=== PATIENT | male | born 1940 | race Caucasian/White ===

== ENCOUNTER → 2018-04-25 16:59 | Outpatient (CLI) | payer MEDICARE, OTHER, SELFPAY ==
[2018-04-25 18:00] LABS: Add Manual Diff / Slide Review NO; Basophils Percent Auto 0.4 % (0-2); Eosinophils Percent Auto 1.3 % (2-4); Hematocrit 32.2 % (41-53); Hemoglobin 11.2 g/dL (13.5-17.5); Lymphocytes Percent Auto 26.4 % (25-40); Mean Corpuscular HGB Conc 34.6 % (30-36); Mean Corpuscular Volume 98.4 fL (80-100); Monocytes Percent Auto 6.4 % (3-14); Neutrophils Absolute Auto 3600 /uL (3000-5900); Neutrophils Percent Auto 65.5 % (50-75); Platelet Count 171 X10^3/uL (150-400); Red Blood Cell Count 3.28 X10^6/uL (4.5-5.9); Red Cell Distribution Width 13.8 % (11.6-14.8); White Blood Cell Count 5.5 X10^3/uL (4.5-11.0)
[2018-04-25 19:05] LABS: Alanine Aminotransferase 33 IU/L (21-72); Albumin 4.4 g/dL (3.5-5.0); Albumin Globulin Ratio 1.4 (1.0-2.8); Alkaline Phosphatase 83 U/L (38-126); Aspartate Aminotransferase 26 IU/L (17-59); Bilirubin Total 0.5 mg/dL (0.2-1.3); Blood Urea Nitrogen 18 mg/dL (9-20); Calcium 9.8 mg/dL (8.4-10.2); Carbon Dioxide 24 mmol/L (22-32); Chloride 106 mmol/L (98-107); Estimated Glomerular Filt Rate 58.6 mL/min (>60); Globulin 3.1 g/dL (1.7-4.1); Glucose 123 mg/dL (80-110); HEMOLYSIS < 15 (0-50); Potassium 4.8 mmol/L (3.4-5.1); Sodium 144 mmol/L (137-145); Total Protein 7.5 g/dL (6.3-8.2)
[2018-04-25 19:07] LABS: Hemoglobin A1C% w Est Avg Glu 6.1 % (4.0-6.0)
[2018-04-27 15:15] LABS: Parathyroid Hormone Int 54 pg/mL (14-64)
== END ==
PROVIDERS: PCP Internal Medicine; Visit Provider Internal Medicine
DX: E08.42 Diabetes mellitus due to underlying condition with diabetic polyneuropathy (principal)
CPT/HCPCS: 36415; 80053; 83036; 83970; 85025

== ENCOUNTER → 2019-05-02 15:09 | Outpatient (CLI) | payer MEDICARE, OTHER, SELFPAY ==
--- NOTE | 2019-05-02 | DI.RAD.S_ITS ---
PROCEDURE: XR ANKLE RT MIN 3V INDICATIONS: right foot injury TECHNIQUE: 3 views of the ankle were acquired. COMPARISON: None. FINDINGS: Bones: No fractures or dislocations. Ankle mortise is normally aligned. No suspicious bony lesions. Mild degenerative joint disease is present at the tibiotalar joint. There are calcaneal spurring. Soft tissues: No tibiotalar joint effusion. Achilles tendon appears normal. IMPRESSION: 1. No acute bony injuries. If clinical symptoms persist or clinical suspicion for pathology is high, a repeat examination in 7-10 days, or advanced imaging such as CT or MRI is suggested for further evaluation. Dictated by: Noble Yu M.D. on 05/02/2019 at 17:08 Approved by: Noble Yu M.D. on 05/02/2019 at 17:41
== END ==
PROVIDERS: PCP Internal Medicine; Visit Provider Internal Medicine
DX: S99.921A Unspecified injury of right foot, initial encounter (principal); M19.071 Primary osteoarthritis, right ankle and foot; M77.31 Calcaneal spur, right foot; X58.XXXA Exposure to other specified factors, initial encounter
CPT/HCPCS: 73610

== ENCOUNTER → 2020-04-24 13:50 | Outpatient (CLI) | payer MEDICARE, OTHER, SELFPAY ==
[2020-04-24 14:53] LABS: Add Manual Diff / Slide Review NO; Basophils Absolute Auto 0 /uL (0-100); Basophils Percent Auto 0.2 % (0-2); Eosinophils Absolute Auto 0 /uL (0-450); Eosinophils Percent Auto 0.7 % (2-4); Hematocrit 29.9 % (41-53); Hemoglobin 10.2 g/dL (13.5-17.5); Lymphocytes Absolute Auto 1200 /uL (1100-4500); Lymphocytes Percent Auto 25.1 % (25-40); Mean Corpuscular HGB Conc 34.1 % (30-36); Mean Corpuscular Hemoglobin 33.2 PG (26-34); Mean Corpuscular Volume 97.3 fL (80-100); Monocytes Absolute Auto 300 /uL (0-900); Neutrophils Absolute Auto 3400 /uL (1500-7000); Platelet Count 162 X10^3/uL (150-400); Red Blood Cell Count 3.08 X10^6/uL (4.5-5.9); Red Cell Distribution Width 14.5 % (11.6-14.8)
[2020-04-24 15:00] LABS: Hemoglobin A1C% w Est Avg Glu 6.3 % (4.0-6.0)
[2020-04-24 15:23] LABS: Alanine Aminotransferase 16 IU/L (<50); Albumin 4.5 g/dL (3.5-5.0); Albumin Globulin Ratio 1.5 (1.0-2.8); Alkaline Phosphatase 55 U/L (38-126); Aspartate Aminotransferase 25 IU/L (17-59); BUN Creatinine Ratio 15.6 (6-22); Bilirubin Total 0.5 mg/dL (0.2-1.3); Blood Urea Nitrogen 24 mg/dL (9-20); Carbon Dioxide 27 mmol/L (22-32); Chloride 105 mmol/L (98-107); Estimated Glomerular Filt Rate 43.7 mL/min (>60); Globulin 3.1 g/dL (1.7-4.1); Glucose 182 mg/dL (80-110); HEMOLYSIS < 15 (0-50); Potassium 4.8 mmol/L (3.4-5.1); Sodium 140 mmol/L (137-145); Total Protein 7.6 g/dL (6.3-8.2)
[2020-04-25 07:10] LABS: Parathyroid Hormone Int 16 pg/mL (15-65)
== END ==
PROVIDERS: PCP Internal Medicine; Referring Provider Internal Medicine; Visit Provider Internal Medicine
DX: E11.9 Type 2 diabetes mellitus without complications (principal); D63.1 Anemia in chronic kidney disease; E83.52 Hypercalcemia
CPT/HCPCS: 36415; 80053; 83036; 83970; 85025

== ENCOUNTER → 2020-05-01 15:10 | Outpatient (CLI) | payer MEDICARE, OTHER, SELFPAY ==
[2020-05-01 18:10] LABS: HEMOLYSIS < 15 (0-50); Iron 97 ug/dL (49-181)
[2020-05-01 18:20] LABS: Percent Iron Saturation 27 % (20-50); Total Iron Binding Capacity 362 ug/dL (261-462); Transferrin 283 mg/dL (206-381)
== END ==
PROVIDERS: PCP Internal Medicine; Referring Provider Internal Medicine; Visit Provider Internal Medicine
DX: N28.9 Disorder of kidney and ureter, unspecified (principal); D63.1 Anemia in chronic kidney disease
CPT/HCPCS: 36415; 83540; 83550

== ENCOUNTER → 2020-09-16 14:00 | Oncology outpatient (ONC) | payer MEDICARE, OTHER, SELFPAY ==
--- NOTE | 2020-05-12 12:55 | ONC.MSW ---
Description: Initial Referral Navigation Reason for Referral: Progressive Chronic Anemia-Normal Iron Studies Activity: Reviewed referral for acuity, medical status and immediate needs. Referred by Dr. Rosario, who feels that this anemia is due to chronic kidney disease or bone marrow failure. Forwarded to scheduling for next available initial consult time.
[2020-05-13 12:16] LABS: Add Manual Diff / Slide Review NO; Basophils Absolute Auto 0 /uL (0-100); Basophils Percent Auto 0.2 % (0-2); Eosinophils Absolute Auto 0 /uL (0-450); Eosinophils Percent Auto 0.9 % (2-4); Hemoglobin 9.5 g/dL (13.5-17.5); Lymphocytes Absolute Auto 1300 /uL (1100-4500); Lymphocytes Percent Auto 23.7 % (25-40); Mean Corpuscular HGB Conc 34.1 % (30-36); Mean Corpuscular Hemoglobin 33.6 PG (26-34); Mean Corpuscular Volume 98.4 fL (80-100); Monocytes Absolute Auto 400 /uL (0-900); Monocytes Percent Auto 6.6 % (3-14); Neutrophils Absolute Auto 3700 /uL (1500-7000); Neutrophils Percent Auto 68.6 % (50-75); Platelet Count 161 X10^3/uL (150-400); Red Blood Cell Count 2.84 X10^6/uL (4.5-5.9); Red Cell Distribution Width 14.5 % (11.6-14.8); White Blood Cell Count 5.4 X10^3/uL (4.5-11.0)
--- NOTE | 2020-05-13 12:31 | P.CONONC_ITS ---
History of Present Illness - Data of Consult Primary Care Provider: Hung Rosario MD - Consult Narrative Narrative: Harrison Carlin is a 79 year old male referred for further evaluation of normochromic normocytic anemia. Review of his old records shows that in November of 2012 he had a hemoglobin of 11.6. 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 In August of 2017 he had a hemoglobin of 10.6 hematocrit 30.4 white count 6100 with platelets of a [id number]. At that time his creatinine was 1.2. He has also had episodic hypercalcemia 1st noted in July of 2016 when his calcium was 10.6. He has been followed by Dr. Louis Rosario, and his hemoglobin has gone down lately. He is now referred for hematology consultation. He has had progressive dementia. He has had increasing fatigue for the last 2 years or so. He has lost about 10 lb over the last several years. He has felt cold frequently during this time period he has chronic pain in his lower back this been present for several years but has been seen by an orthopedist and recommended to have physical therapy for his back which he completed several years ago. The pain does not wake him up at night and has not changed much over the last 2 years. He has nocturia but no dysuria. He denies any other pain, bleeding, localized weakness, fever, chills, nausea, vomiting, cough, shortness of breath, lumps or bumps, skin rash. All other systems are negative. Past medical history 1. He had a stroke in 2015 2. Adult onset diabetes 3. High blood pressure 4. Hyperlipidemia 5. coronary artery disease. He had an NH in 1993 and angioplasty in 2014 6. History of spermatocele 7. Benign prostatic hypertrophy 8. Chronic renal insufficiency 9. Previous surgeries include an upper endoscopy, colonoscopy, chest tube for pneumothorax 10. There is no family history of blood disorders 11. He is accompanied by his is very supportive. He is a former smoker quit in 1977 is an occasional drinker. 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 He denies rheumatic fever, tuberculosis, or any kind of cancer. Geriatric assessment: He requires assistance with his ADLs including dressing, and sometimes toileting. He is not independent in any of his IADLs. Get up and go time was significantly prolonged. He has a frail geriatric status. CC: Cuco Lock MD Home Medications and Allergies Home Medications Medication Instructions Recorded Confirmed Type atorvastatin 40 mg PO HS #0 09/08/17 History clopidogrel 75 mg PO QPM #0 09/08/17 History donepezil 5 mg PO HS #0 09/08/17 History acetaminophen 650 mg PO Q8H #90 tab 09/09/17 Rx gabapentin [Neurontin] 300 mg PO HS #30 cap 09/09/17 Rx aspirin 81 mg PO DAILY 05/13/20 05/13/20 History ferrous sulfate 325 mg PO BID 05/13/20 05/13/20 History lancets-blood glucose strips 05/13/20 05/13/20 History metformin 1,000 mg PO BID 05/13/20 05/13/20 History metoprolol tartrate 25 mg PO DAILY 05/13/20 05/13/20 History multivitamin 1 tab PO DAILY 05/13/20 05/13/20 History pioglitazone 30 mg PO DAILY 05/13/20 05/13/20 History Allergies Allergy/AdvReac Type Severity Reaction Status Date / Time niacin AdvReac Unknown ITCHING Verified 05/13/20 10:34 Exam Vital signs: Intake and Output 05/12/20 05/13/20 05/13/20 23:59 07:59 15:59 Other: Weight 77.9 kg Patient Weight 05/13/20 23:59 Weight 77.9 kg Narrative: He was awake, alert and oriented x3. There was no lymphadenopathy in the cervical, supraclavicular axillary regions. Lungs were clear without wheezes or rales. Heart showed a regular rate and rhythm without murmur, gallop or rub. The abdomen is soft and nontender without any palpable hepatosplenomegaly or masses. Results - Labs Laboratory Last Values WBC 5.4 X10^3/uL (4.5-11.0) 05/13/20 11:43 RBC 2.84 X10^6/uL (4.5-5.9) L 05/13/20 11:43 Hgb 9.5 g/dL (13.5-17.5) L 05/13/20 11:43 Hct 28.0 % (41-53) L 05/13/20 11:43 MCV 98.4 fL (80-100) 05/13/20 11:43 MCH 33.6 PG (26-34) 05/13/20 11:43 MCHC 34.1 % (30-36) 05/13/20 11:43 RDW 14.5 % (11.6-14.8) 05/13/20 11:43 Plt Count 161 X10^3/uL (150-400) 05/13/20 11:43 Neut % (Auto) 68.6 % (50-75) 05/13/20 11:43 Lymph % (Auto) 23.7 % (25-40) L 05/13/20 11:43 [place] % (Auto) 6.6 % (3-14) 05/13/20 11:43 Eos % (Auto) 0.9 % (2-4) L 05/13/20 11:43 Baso % (Auto) 0.2 % (0-2) 05/13/20 11:43 Neut # (Auto) 3700 /uL (2445-0946) 05/13/20 11:43 Lymph # (Auto) 1300 /uL (0105-0751) 05/13/20 11:43 [place] # (Auto) 400 /uL (0-900) 05/13/20 11:43 Eos # (Auto) 0 /uL (0-450) 05/13/20 11:43 Baso # (Auto) 0 /uL (0-100) 05/13/20 11:43 - Imaging Additional studies: Procedures Administration of sjowkzaegn-gdevqjd-uxvacvlik, combined (05/18/13) Colonoscopy (11/04/11) Esophagogastroduodenoscopy [EGD] with closed biopsy (11/04/11) Injection or infusion of other therapeutic or prophylactic substance (08/27/14) Assessment and Plan (1) Anemia Status: Acute Mr. Kurtz has a longstanding but more recently progressive anemia. He has also had some worsening renal function, a 4 year history of intermittent mild hypercalcemia, and a remote history of a monoclonal paraprotein. He has a frail geriatric status with worsening mobility although he has not had any falls. We discussed potential causes of a normochromic normocytic anemia. He will have labs today including a ferritin, reticulocyte count, B12, folate, hypothyroidism, and primary bone marrow disorders. Primary bone marrow marrow disorders could include lymphoproliferative disorders or myelodysplastic syndrome. He will have labs done today for nutritional and metabolic screening as noted above as well as a repeat CBC. He will return afterwards for follow-up. If his anemia continues to worsen and his screening studies are unrevealing, and the potential candidate for DAVIDE support, such is with darbepoetin. He will also be referred to physical therapy. [facility] to [facility] and Fiorella nesbitt would like to go back there. This would be intended to try to improve his balance and gait stability with the goal of avoiding falls. He and his had multiple questions that were answered in detail and I personally spent 46 minutes in today's llja-rz-paiq visit with greater than 50% of the time spent in counseling regarding the issues outlined above. (1) Anemia Qualifiers: Anemia type: unspecified type Qualified Code(s): D64.9 - Anemia, unspecified
[2020-05-13 13:02] LABS: Ferritin 74 ng/mL (18-464)
[2020-05-13 13:29] LABS: Reticulocyte Count, Percent 1.5 % (0.87-2.60)
[2020-05-13 13:33] LABS: Folate > 20.0 ng/mL (2.76-20.0); Vitamin B12 265 pg/mL (239-931)
[2020-05-15 14:27] LABS: Alpha-1-Globulin 0.2 g/dL (0.0-0.4); Alpha-2-Globulin 0.8 g/dL (0.4-1.0); Gamma Globulin 0.7 g/dL (0.4-1.8); Globulin Total 2.5 g/dL (2.2-3.9); Protein, Total 6.5 g/dL (6.0-8.5)
[2020-05-28 15:07] VITALS: BP 122/68; PULSE 57; RESP 18; TEMP 36.8; O2SAT 98
--- NOTE | 2020-05-28 15:42 | ONC.PN ---
PN -Subjective Interval history: Harrison Carlin is a 79 year old male seen today for follow up evaluation of normochromic normocytic anemia. Review of his old records shows that in November of 2012 he had a hemoglobin of 11.6. 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 In August of 2017 he had a hemoglobin of 10.6 hematocrit 30.4 white count 6100 with platelets of a [id number]. At that time his creatinine was 1.2. He has also had episodic hypercalcemia 1st noted in July of 2016 when his calcium was 10.6. He has been followed by Dr. Louis Rosario, and his hemoglobin has gone down lately. He was seen for hematology consultation about 2 weeks ago, had labs, and comes in today to review results.. He has had progressive dementia. He has had increasing fatigue for the last 2 years or so. He has lost about 10 lb over the last several years. He has felt cold frequently during this time period he has chronic pain in his lower back this been present for several years but has been seen by an orthopedist and recommended to have physical therapy for his back which he completed several years ago. The pain does not wake him up at night and has not changed much over the last 2 years. He has nocturia but no dysuria. He denies any other pain, bleeding, localized weakness, fever, chills, nausea, vomiting, cough, shortness of breath, lumps or bumps, skin rash. All other systems are negative. Past medical history 1. He had a stroke in 2015 2. Adult onset diabetes 3. High blood pressure 4. Hyperlipidemia 5. coronary artery disease. He had an DC in 1993 and angioplasty in 2014 6. History of spermatocele 7. Benign prostatic hypertrophy 8. Chronic renal insufficiency 9. Previous surgeries include an upper endoscopy, colonoscopy, chest tube for pneumothorax 10. There is no family history of blood disorders 11. He is accompanied by his is very supportive. He is a former smoker quit in 1977 is an occasional drinker. 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 He denies rheumatic fever, tuberculosis, or any kind of cancer. - Patient Self-Reported Symptoms SR Constitution: Fatigue/Malaise Home Medications and Allergies Home Medications Medication Instructions Recorded Confirmed Type atorvastatin 40 mg PO HS #0 09/08/17 05/28/20 History clopidogrel 75 mg PO QPM #0 10/19/17 07/08/20 History donepezil 5 mg PO HS #0 09/08/17 05/28/20 History acetaminophen 650 mg PO Q8H #90 tab 09/09/17 05/28/20 Rx gabapentin [Neurontin] 300 mg PO HS #30 cap 09/09/17 05/28/20 Rx aspirin 81 mg PO DAILY 05/13/20 05/28/20 History ferrous sulfate 325 mg PO BID 05/13/20 05/28/20 History lancets-blood glucose strips 05/13/20 05/13/20 History metformin 1,000 mg PO BID 05/13/20 05/28/20 History metoprolol tartrate 25 mg PO DAILY 05/13/20 05/28/20 History multivitamin 1 tab PO DAILY 05/13/20 05/28/20 History pioglitazone 30 mg PO DAILY 05/13/20 05/28/20 History Allergies Allergy/AdvReac Type Severity Reaction Status Date / Time niacin AdvReac Unknown ITCHING Verified 05/13/20 10:34 Exam Vital signs: Vital Signs Temp Pulse Resp BP Pulse Ox 05/28/20 15:07 98.2 F 57 L 18 122/68 98 Intake and Output 05/27/20 05/28/20 05/28/20 23:59 07:59 15:59 Other: Weight 78.4 kg Patient Weight 05/28/20 23:59 Weight 78.4 kg Narrative: He was awake, alert and oriented x3. He was in a wheelchair. Results - Labs Laboratory Last Values WBC 5.4 X10^3/uL (4.5-11.0) 05/13/20 11:43 RBC 2.84 X10^6/uL (4.5-5.9) L 05/13/20 11:43 Hgb 9.5 g/dL (13.5-17.5) L 05/13/20 11:43 Hct 28.0 % (41-53) L 05/13/20 11:43 MCV 98.4 fL (80-100) 05/13/20 11:43 MCH 33.6 PG (26-34) 05/13/20 11:43 MCHC 34.1 % (30-36) 05/13/20 11:43 RDW 14.5 % (11.6-14.8) 05/13/20 11:43 Plt Count 161 X10^3/uL (150-400) 05/13/20 11:43 Neut % (Auto) 68.6 % (50-75) 05/13/20 11:43 Lymph % (Auto) 23.7 % (25-40) L 05/13/20 11:43 Lane % (Auto) 6.6 % (3-14) 05/13/20 11:43 Eos % (Auto) 0.9 % (2-4) L 05/13/20 11:43 Baso % (Auto) 0.2 % (0-2) 05/13/20 11:43 Neut # (Auto) 3700 /uL (4928-9033) 05/13/20 11:43 Lymph # (Auto) 1300 /uL (4166-7935) 05/13/20 11:43 Lane # (Auto) 400 /uL (0-900) 05/13/20 11:43 Eos # (Auto) 0 /uL (0-450) 05/13/20 11:43 Baso # (Auto) 0 /uL (0-100) 05/13/20 11:43 Percent Retic 1.5 % (0.87-2.60) 05/13/20 11:43 Ferritin 74 ng/mL (18-464) 05/13/20 11:43 Total Protein 6.5 g/dL (6.0-8.5) 05/13/20 11:43 Albumin 4.0 g/dL (2.9-4.4) 05/13/20 11:43 Albumin/Globulin Ratio 1.6 (0.7-1.7) 05/13/20 11:43 Gopha-2-Qyjlgroqf 0.2 g/dL (0.0-0.4) 05/13/20 11:43 Yqbmr-8-Npzoasyrk 0.8 g/dL (0.4-1.0) 05/13/20 11:43 Beta Globulins 0.8 g/dL (0.7-1.3) 05/13/20 11:43 Gamma Globulins 0.7 g/dL (0.4-1.8) 05/13/20 11:43 Gamma Glob/Tot Protein 2.5 g/dL (2.2-3.9) 05/13/20 11:43 M-Yuri 0.3 g/dL (Not Observed) H 05/13/20 11:43 Vitamin B12 265 pg/mL (239-931) 05/13/20 11:43 Folate > 20.0 ng/mL (2.76-20.0) H 05/13/20 11:43 TSH 6.60 uIU/mL (0.47-4.68) H 05/13/20 11:43 Ref Lab Notation Comment (.) 05/13/20 11:43 - Imaging Additional studies: Procedures Administration of fxxcayxgws-tkgrvso-itwweczdd, combined (05/18/13) Colonoscopy (11/04/11) Esophagogastroduodenoscopy [EGD] with closed biopsy (11/04/11) Injection or infusion of other therapeutic or prophylactic substance (08/27/14) Assessment and Plan (1) Anemia Status: Acute Mr. Kurtz has a longstanding but more recently progressive anemia. His screening labs show normal ferritin, iron saturation, vitamin B12, folate, reticulocyte count, white count, white cell differential, platelet count. His monoclonal paraprotein is 0.3 grams/deciliter on serum protein electrophoresis, stable compared with October of 2014. His TSH is slightly elevated at 6.6 but I doubt is contributing to his anemia. He does have renal insufficiency and likely has a component of anemia of chronic disease. We discussed his options in detail. One approach would be to continue to watch him. His anemia is progressive but it is relatively slow and he is not in a hurry to do anything. A 2nd option will be to proceed with further diagnostic testing. The next step would be a bone marrow examination. We reviewed the logistics of this with an outpatient procedure in of where we and into the needle would be introduced into his posterior iliac crest. This would allow sampling of the bone marrow for further clarification of the cause of the anemia. Another option would be to empirically treat him with Aranesp. Given his normal white count and platelets it is less likely that he has an underlying lymphoproliferative disorder or obviously treatable bone marrow malignancy as the cause of the anemia. In addition, he has a frail geriatric status and would not be a candidate for more intensive treatments of any sort. For anemia of chronic renal insufficiency as well as for many potential diagnoses he might find on a bone marrow (such as myelodysplastic syndrome), Aranesp would be the treatment of choice. I explained would typically start with 200 mcg every 2 weeks. Will reassess after about 8 weeks to make sure that it is working with his red count coming up, and also to make sure that this results in a clinical improvement of his symptoms. If he did respond favorably, would then try to titrate the dose so that he receives it at the longus possible interval between injections. I explained this is not a curative treatment but more like stepping on the gas. If we stop the Aranesp would be like taking our foot off the gas and things would typically go back to where they were pre treatment. He would like to think about things right now. Accordingly, will plan to get him back in about a month with another CBC and metabolic panel. Incision could be made at that time as to how he wishes to proceed. He also has generalized weakness. He will be referred to [facility] in [place]. This referral was placed last time he was here but he has not heard anything from them so we will rehab refer him to that facility. He and his were both interested in pursuing this try to maximize his functional status. I talked to our social work team and they will help to coordinate this referral. I personally spent 26 minutes in today's lrtm-ks-drsd visit with greater than 50% of the time spent in counseling regarding the issues outlined above. (1) Anemia Qualifiers: Anemia type: unspecified type Qualified Code(s): D64.9 - Anemia, unspecified
[2020-06-23 16:45] LABS: Add Manual Diff / Slide Review NO; Basophils Absolute Auto 0 /uL (0-100); Basophils Percent Auto 0.3 % (0-2); Eosinophils Absolute Auto 0 /uL (0-450); Eosinophils Percent Auto 0.7 % (2-4); Hematocrit 29.5 % (41-53); Hemoglobin 9.9 g/dL (13.5-17.5); Lymphocytes Absolute Auto 1100 /uL (1100-4500); Lymphocytes Percent Auto 21.9 % (25-40); Mean Corpuscular HGB Conc 33.5 % (30-36); Mean Corpuscular Hemoglobin 33.1 PG (26-34); Monocytes Absolute Auto 300 /uL (0-900); Monocytes Percent Auto 5.4 % (3-14); Neutrophils Absolute Auto 3500 /uL (1500-7000); Neutrophils Percent Auto 71.7 % (50-75); Platelet Count 163 X10^3/uL (150-400); Red Blood Cell Count 2.98 X10^6/uL (4.5-5.9); Red Cell Distribution Width 14.9 % (11.6-14.8); White Blood Cell Count 4.8 X10^3/uL (4.5-11.0)
[2020-06-23 17:00] LABS: Alanine Aminotransferase 16 IU/L (<50); Albumin 4.5 g/dL (3.5-5.0); Albumin Globulin Ratio 1.7 (1.0-2.8); Alkaline Phosphatase 61 U/L (38-126); Aspartate Aminotransferase 26 IU/L (17-59); BUN Creatinine Ratio 18.4 (6-22); Bilirubin Total 0.7 mg/dL (0.2-1.3); Blood Urea Nitrogen 29 mg/dL (9-20); Calcium 10.6 mg/dL (8.4-10.2); Carbon Dioxide 24 mmol/L (22-32); Chloride 105 mmol/L (98-107); Estimated Glomerular Filt Rate 42.4 mL/min (>60); Globulin 2.7 g/dL (1.7-4.1); Glucose 241 mg/dL (80-110); HEMOLYSIS < 15 (0-50); Potassium 4.9 mmol/L (3.4-5.1); Sodium 137 mmol/L (137-145); Total Protein 7.2 g/dL (6.3-8.2)
[2020-06-25 13:41] VITALS: BP 131/60; PULSE 56; RESP 16; TEMP 36.7; O2SAT 100
--- NOTE | 2020-06-25 14:01 | ONC.PN ---
PN -Subjective Interval history: Harrison Carlin is a 79 year old male seen today for follow up evaluation of normochromic normocytic anemia. Review of his old records shows that in November of 2012 he had a hemoglobin of 11.6. 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 In August of 2017 he had a hemoglobin of 10.6 hematocrit 30.4 white count 6100 with platelets of a [id number]. At that time his creatinine was 1.2. He has also had episodic hypercalcemia 1st noted in July of 2016 when his calcium was 10.6. He has been followed by Dr. Louis Rosario, and his hemoglobin has gone down lately. He was seen for hematology consultation about 6 weeks ago, had labs, and comes in today to review results.. He still feels tired but is not changed significantly. He is not getting out of the house for much of anything. He was referred referred to physical therapy the last time he was in but has not gone due to concerns about COVID. He is wanting of home physical therapy would be an option. He does not have any new pain, bleeding, localized weakness, fever, chills, nausea, vomiting, cough or change in his breathing. All other systems are negative. Past medical history 1. He had a stroke in 2015 2. Adult onset diabetes 3. High blood pressure 4. Hyperlipidemia 5. coronary artery disease. He had an PA in 1993 and angioplasty in 2014 6. History of spermatocele 7. Benign prostatic hypertrophy 8. Chronic renal insufficiency 9. Previous surgeries include an upper endoscopy, colonoscopy, chest tube for pneumothorax 10. There is no family history of blood disorders 11. He is accompanied by his is very supportive. He is a former smoker quit in 1977 is an occasional drinker. 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 He denies rheumatic fever, tuberculosis, or any kind of cancer. - Patient Self-Reported Symptoms SR Constitution: Fatigue/Malaise Home Medications and Allergies Home Medications Medication Instructions Recorded Confirmed Type atorvastatin 40 mg PO HS #0 09/08/17 06/25/20 History clopidogrel 75 mg PO QPM #0 09/08/17 06/25/20 History donepezil 5 mg PO HS #0 09/08/17 06/25/20 History acetaminophen 650 mg PO Q8H #90 tab 09/09/17 06/25/20 Rx gabapentin [Neurontin] 300 mg PO HS #30 cap 09/09/17 06/25/20 Rx aspirin 81 mg PO DAILY 05/13/20 06/25/20 History ferrous sulfate 325 mg PO BID 05/13/20 06/25/20 History lancets-blood glucose strips 05/13/20 06/25/20 History metformin 1,000 mg PO BID 05/13/20 06/25/20 History metoprolol tartrate 25 mg PO DAILY 05/13/20 06/25/20 History multivitamin 1 tab PO DAILY 05/13/20 06/25/20 History pioglitazone 30 mg PO DAILY 05/13/20 06/25/20 History Allergies Allergy/AdvReac Type Severity Reaction Status Date / Time niacin AdvReac Unknown ITCHING Verified 05/13/20 10:34 Exam Vital signs: Vital Signs Temp Pulse Resp BP Pulse Ox 06/25/20 13:41 98.1 F 56 L 16 131/60 100 Intake and Output 06/24/20 06/25/20 06/25/20 23:59 07:59 15:59 Other: Weight 75.7 kg Patient Weight 06/25/20 23:59 Weight 75.7 kg Narrative: He was awake, alert and oriented x3. He was in a wheelchair. Results - Labs Laboratory Last Values WBC 4.8 X10^3/uL (4.5-11.0) 06/23/20 16:35 RBC 2.98 X10^6/uL (4.5-5.9) L 06/23/20 16:35 Hgb 9.9 g/dL (13.5-17.5) L 06/23/20 16:35 Hct 29.5 % (41-53) L 06/23/20 16:35 MCV 99.0 fL (80-100) 06/23/20 16:35 MCH 33.1 PG (26-34) 06/23/20 16:35 MCHC 33.5 % (30-36) 06/23/20 16:35 RDW 14.9 % (11.6-14.8) H 06/23/20 16:35 Plt Count 163 X10^3/uL (150-400) 06/23/20 16:35 Neut % (Auto) 71.7 % (50-75) 06/23/20 16:35 Lymph % (Auto) 21.9 % (25-40) L 06/23/20 16:35 [place] % (Auto) 5.4 % (3-14) 06/23/20 16:35 Eos % (Auto) 0.7 % (2-4) L 06/23/20 16:35 Baso % (Auto) 0.3 % (0-2) 06/23/20 16:35 Neut # (Auto) 3500 /uL (8941-9102) 06/23/20 16:35 Lymph # (Auto) 1100 /uL (3963-7274) 06/23/20 16:35 [place] # (Auto) 300 /uL (0-900) 06/23/20 16:35 Eos # (Auto) 0 /uL (0-450) 06/23/20 16:35 Baso # (Auto) 0 /uL (0-100) 06/23/20 16:35 Percent Retic 1.5 % (0.87-2.60) 05/13/20 11:43 Sodium 137 mmol/L (137-145) 06/23/20 16:35 Potassium 4.9 mmol/L (3.4-5.1) 06/23/20 16:35 Chloride 105 mmol/L (98-107) 06/23/20 16:35 Carbon Dioxide 24 mmol/L (22-32) 06/23/20 16:35 BUN 29 mg/dL (9-20) H 06/23/20 16:35 Creatinine 1.58 mg/dL (0.66-1.25) H 06/23/20 16:35 Estimated GFR 42.4 mL/min (>60) L 06/23/20 16:35 BUN/Creatinine Ratio 18.4 (6-22) 06/23/20 16:35 Glucose 241 mg/dL (80-110) H 06/23/20 16:35 Calcium 10.6 mg/dL (8.4-10.2) H 06/23/20 16:35 Ferritin 74 ng/mL (18-464) 05/13/20 11:43 Total Bilirubin 0.7 mg/dL (0.2-1.3) 06/23/20 16:35 AST 26 IU/L (17-59) 06/23/20 16:35 ALT 16 IU/L (<50) 06/23/20 16:35 Alkaline Phosphatase 61 U/L (38-126) 06/23/20 16:35 Total Protein 7.2 g/dL (6.3-8.2) 06/23/20 16:35 Albumin 4.5 g/dL (3.5-5.0) 06/23/20 16:35 Globulin 2.7 g/dL (1.7-4.1) 06/23/20 16:35 Albumin/Globulin Ratio 1.7 (1.0-2.8) 06/23/20 16:35 Jzbpl-0-Mhmyyckvf 0.2 g/dL (0.0-0.4) 05/13/20 11:43 Yvyvd-0-Tjqrnwxac 0.8 g/dL (0.4-1.0) 05/13/20 11:43 Beta Globulins 0.8 g/dL (0.7-1.3) 05/13/20 11:43 Gamma Globulins 0.7 g/dL (0.4-1.8) 05/13/20 11:43 Gamma Glob/Tot Protein 2.5 g/dL (2.2-3.9) 05/13/20 11:43 M-Yuri 0.3 g/dL (Not Observed) H 05/13/20 11:43 Vitamin B12 265 pg/mL (239-931) 05/13/20 11:43 Folate > 20.0 ng/mL (2.76-20.0) H 05/13/20 11:43 TSH 6.60 uIU/mL (0.47-4.68) H 05/13/20 11:43 Ref Lab Notation Comment (.) 05/13/20 11:43 - Imaging Additional studies: Procedures Administration of vnjrsnoguc-zuqhifw-xafepmgkl, combined (05/18/13) Colonoscopy (11/04/11) Esophagogastroduodenoscopy [EGD] with closed biopsy (11/04/11) Injection or infusion of other therapeutic or prophylactic substance (08/27/14) Assessment and Plan (1) Anemia Status: Acute Mr. Kurtz has a longstanding but more recently progressive anemia. His screening labs show normal ferritin, iron saturation, vitamin B12, folate, reticulocyte count, white count, white cell differential, platelet count. His monoclonal paraprotein is 0.3 grams/deciliter on serum protein electrophoresis, stable compared with October of 2014. His TSH is slightly elevated at 6.6 but I doubt is contributing to his anemia. He does have renal insufficiency and likely has a component of anemia of chronic disease. We discussed his options in detail. At the present time, his hemoglobin is relatively stable. He has had some ups and Downs in the level but is not clearly stair stepping down. Reviewed the option of observation versus initiation of Aranesp for anemia of chronic renal insufficiency. He and his were both comfortable with continued observation and I think that is reasonable given his blood counts over the last several months. Of note is that he does not have any abnormalities in his white cells or platelets. We will look into whether not he would be a potential candidate for home physical therapy. If so, this will be arranged. If not, they would like to defer until things have settled down from a pandemic perspective. Will plan to get him back here for follow-up in about 2 months with repeat labs and ib have see minute time of problems which arise in the interim. If he does have clear worsening of his anemia, initiation of Aranesp would be the treatment of choice. He will also see Dr. Rosario about his thyroid. I personally spent 26 minutes in today's elso-tf-yjmm visit with greater than 50% of the time spent in counseling regarding the issues outlined above. (1) Anemia Qualifiers: Anemia type: unspecified type Qualified Code(s): D64.9 - Anemia, unspecified
[2020-06-25 14:15] VITALS: BP 110/70; PULSE 49; RESP 16; TEMP 36.9; O2SAT 100
--- NOTE | 2020-06-25 15:08 | ONC.MSW ---
Description: Home Health Referral Activity: CERTIFIED REGISTERED LOCKSMITH completed the home health referral form and faxed to [facility], per pt and Dr. Lock's request. No further needs identified at this time.
[2020-09-12 17:10] LABS: Add Manual Diff / Slide Review NO; Basophils Absolute Auto 0 /uL (0-100); Basophils Percent Auto 0.3 % (0-2); Eosinophils Absolute Auto 0 /uL (0-450); Eosinophils Percent Auto 0.8 % (2-4); Hematocrit 30.5 % (41-53); Lymphocytes Absolute Auto 1100 /uL (1100-4500); Lymphocytes Percent Auto 24.5 % (25-40); Mean Corpuscular HGB Conc 32.9 % (30-36); Mean Corpuscular Hemoglobin 32.4 PG (26-34); Mean Corpuscular Volume 98.3 fL (80-100); Monocytes Absolute Auto 300 /uL (0-900); Monocytes Percent Auto 5.9 % (3-14); Neutrophils Absolute Auto 3200 /uL (1500-7000); Neutrophils Percent Auto 68.5 % (50-75); Platelet Count 160 X10^3/uL (150-400); Red Cell Distribution Width 14.9 % (11.6-14.8); White Blood Cell Count 4.7 X10^3/uL (4.5-11.0)
[2020-09-12 17:24] LABS: Alanine Aminotransferase 17 IU/L (<50); Albumin 4.4 g/dL (3.5-5.0); Albumin Globulin Ratio 1.5 (1.0-2.8); Alkaline Phosphatase 67 U/L (38-126); Aspartate Aminotransferase 25 IU/L (17-59); BUN Creatinine Ratio 15.7 (6-22); Bilirubin Total 0.6 mg/dL (0.2-1.3); Blood Urea Nitrogen 21 mg/dL (9-20); Calcium 10.3 mg/dL (8.4-10.2); Carbon Dioxide 26 mmol/L (22-32); Chloride 103 mmol/L (98-107); Estimated Glomerular Filt Rate 51.2 mL/min (>60); Glucose 255 mg/dL (80-110); HEMOLYSIS < 15 (0-50); Potassium 4.7 mmol/L (3.4-5.1); Sodium 138 mmol/L (137-145); Total Protein 7.4 g/dL (6.3-8.2)
[2020-09-12 18:00] LABS: Ferritin 92 ng/mL (18-464)
[2020-09-12 18:13] LABS: Vitamin B12 340 pg/mL (239-931)
[2020-09-16 14:16] VITALS: BP 122/58; PULSE 66; RESP 16; O2SAT 99
--- NOTE | 2020-09-16 14:16 | P.PNONC_ITS ---
PN -Subjective Interval history: Harrison Carlin is a 79 year old male seen today for follow up evaluation of normochromic normocytic anemia. Review of his old records shows that in November of 2012 he had a hemoglobin of 11.6. 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 In August of 2017 he had a hemoglobin of 10.6 hematocrit 30.4 white count 6100 with platelets of a [id number]. At that time his creatinine was 1.2. He has also had episodic hypercalcemia 1st noted in July of 2016 when his calcium was 10.6. He has been followed by Dr. Louis Rosario, and his hemoglobin has gone down lately. He was seen for hematology consultation about 6 weeks ago, had labs, and comes in today to review results.. He still feels tired but is not changed significantly. He is not getting out of the house for much of anything. He was referred referred to physical therapy the last time he was in but has not gone due to concerns about COVID. He is wanting of home physical therapy would be an option. He does not have any new pain, bleeding, localized weakness, fever, chills, nausea, vomiting, cough or change in his breathing. All other systems are negative. His confirms that he feels essentially the same today as he has with no new events. Past medical history 1. He had a stroke in 2015 2. Adult onset diabetes 3. High blood pressure 4. Hyperlipidemia 5. coronary artery disease. He had an MT in 1993 and angioplasty in 2014 6. History of spermatocele 7. Benign prostatic hypertrophy 8. Chronic renal insufficiency 9. Previous surgeries include an upper endoscopy, colonoscopy, chest tube for pneumothorax 10. There is no family history of blood disorders 11. He is accompanied by his is very supportive. He is a former smoker quit in 1977 is an occasional drinker. He previously worked as a lead retail sales associate 12. He denies rheumatic fever, tuberculosis, or any kind of cancer. - Patient Self-Reported Symptoms SR Constitution: Fatigue/Malaise Home Medications and Allergies Home Medications Medication Instructions Recorded Confirmed Type atorvastatin 40 mg PO HS #0 09/08/17 06/25/20 History clopidogrel 75 mg PO QPM #0 09/08/17 06/25/20 History donepezil 5 mg PO HS #0 09/08/17 06/25/20 History acetaminophen 650 mg PO Q8H #90 tab 09/09/17 06/25/20 Rx gabapentin [Neurontin] 300 mg PO HS #30 cap 09/09/17 06/25/20 Rx aspirin 81 mg PO DAILY 05/13/20 06/25/20 History ferrous sulfate 325 mg PO BID 05/13/20 06/25/20 History lancets-blood glucose strips 05/13/20 06/25/20 History metformin 1,000 mg PO BID 05/13/20 06/25/20 History metoprolol tartrate 25 mg PO DAILY 05/13/20 06/25/20 History multivitamin 1 tab PO DAILY 05/13/20 06/25/20 History pioglitazone 30 mg PO DAILY 05/13/20 06/25/20 History Allergies Allergy/AdvReac Type Severity Reaction Status Date / Time niacin AdvReac Unknown ITCHING Verified 05/13/20 10:34 Exam Narrative: He was awake, alert and oriented x3. He was in a wheelchair. Results - Labs Laboratory Last Values WBC 4.7 X10^3/uL (4.5-11.0) 09/12/20 16:42 RBC 3.10 X10^6/uL (4.5-5.9) L 09/12/20 16:42 Hgb 10.0 g/dL (13.5-17.5) L 09/12/20 16:42 Hct 30.5 % (41-53) L 09/12/20 16:42 MCV 98.3 fL (80-100) 09/12/20 16:42 MCH 32.4 PG (26-34) 09/12/20 16:42 MCHC 32.9 % (30-36) 09/12/20 16:42 RDW 14.9 % (11.6-14.8) H 09/12/20 16:42 Plt Count 160 X10^3/uL (150-400) 09/12/20 16:42 Neut % (Auto) 68.5 % (50-75) 09/12/20 16:42 Lymph % (Auto) 24.5 % (25-40) L 09/12/20 16:42 Millard % (Auto) 5.9 % (3-14) 09/12/20 16:42 Eos % (Auto) 0.8 % (2-4) L 09/12/20 16:42 Baso % (Auto) 0.3 % (0-2) 09/12/20 16:42 Neut # (Auto) 3200 /uL (0232-6773) 09/12/20 16:42 Lymph # (Auto) 1100 /uL (6610-4612) 09/12/20 16:42 Millard # (Auto) 300 /uL (0-900) 09/12/20 16:42 Eos # (Auto) 0 /uL (0-450) 09/12/20 16:42 Baso # (Auto) 0 /uL (0-100) 09/12/20 16:42 Percent Retic 1.5 % (0.87-2.60) 05/13/20 11:43 Sodium 138 mmol/L (137-145) 09/12/20 16:42 Potassium 4.7 mmol/L (3.4-5.1) 09/12/20 16:42 Chloride 103 mmol/L (98-107) 09/12/20 16:42 Carbon Dioxide 26 mmol/L (22-32) 09/12/20 16:42 BUN 21 mg/dL (9-20) H 09/12/20 16:42 Creatinine 1.34 mg/dL (0.66-1.25) H 09/12/20 16:42 Estimated GFR 51.2 mL/min (>60) L 09/12/20 16:42 BUN/Creatinine Ratio 15.7 (6-22) 09/12/20 16:42 Glucose 255 mg/dL (80-110) H 09/12/20 16:42 Calcium 10.3 mg/dL (8.4-10.2) H 09/12/20 16:42 Ferritin 92 ng/mL (18-464) 09/12/20 16:42 Total Bilirubin 0.6 mg/dL (0.2-1.3) 09/12/20 16:42 AST 25 IU/L (17-59) 09/12/20 16:42 ALT 17 IU/L (<50) 09/12/20 16:42 Alkaline Phosphatase 67 U/L (38-126) 09/12/20 16:42 Total Protein 7.4 g/dL (6.3-8.2) 09/12/20 16:42 Albumin 4.4 g/dL (3.5-5.0) 09/12/20 16:42 Globulin 3.0 g/dL (1.7-4.1) 09/12/20 16:42 Albumin/Globulin Ratio 1.5 (1.0-2.8) 09/12/20 16:42 Tdfmr-1-Qfznpwcoq 0.2 g/dL (0.0-0.4) 05/13/20 11:43 Zedri-1-Btlourswj 0.8 g/dL (0.4-1.0) 05/13/20 11:43 Beta Globulins 0.8 g/dL (0.7-1.3) 05/13/20 11:43 Gamma Globulins 0.7 g/dL (0.4-1.8) 05/13/20 11:43 Gamma Glob/Tot Protein 2.5 g/dL (2.2-3.9) 05/13/20 11:43 M-Yuri 0.3 g/dL (Not Observed) H 05/13/20 11:43 Vitamin B12 340 pg/mL (239-931) 09/12/20 16:42 Folate > 20.0 ng/mL (2.76-20.0) H 05/13/20 11:43 TSH 6.60 uIU/mL (0.47-4.68) H 05/13/20 11:43 Ref Lab Notation Comment (.) 05/13/20 11:43 - Imaging Additional studies: Procedures Administration of [id number]-buvvlgq-msbhgnkvc, combined (05/18/13) Colonoscopy (11/04/11) Esophagogastroduodenoscopy [EGD] with closed biopsy (11/04/11) Injection or infusion of other therapeutic or prophylactic substance (08/27/14) Assessment and Plan (1) Anemia Status: Acute Mr. Kurtz has a longstanding but more recently progressive anemia. His screening labs show normal ferritin, iron saturation, vitamin B12, folate, reticulocyte count, white count, white cell differential, platelet count. His monoclonal paraprotein is 0.3 grams/deciliter on serum protein electrophoresis, stable compared with October of 2014. His TSH is slightly elevated at 6.6 but I doubt is contributing to his anemia. He does have renal insufficiency and likely has a component of anemia of chronic disease. We discussed his options in detail. At the present time, his hemoglobin is relatively stable. He has had some ups and Downs in the level but is not clearly stair stepping down. Reviewed the option of observation versus initiation of Aranesp for anemia of chronic renal insufficiency. He and his were both comfortable with continued observation and I think that is reasonable given his blood counts over the last several months. Of note is that he does not have any abnormalities in his white cells or platelets. Will plan to get him back for follow-up in about 2 months. Have a CBC, and metabolic panel prior to that visit. Will initiate Aranesp if he is consistently below a hemoglobin of 10. Will continue to observe him if he stays in the same ballpark. He will continue his follow-up with Dr. Rosario. Of note is made his most recent TSH was 6.6. This is only slightly elevated and will recheck it again when he returns in 2 months. (1) Anemia Qualifiers: Anemia type: unspecified type Qualified Code(s): D64.9 - Anemia, unspecified
--- NOTE | 2020-11-10 12:10 | ONC.MSW ---
*Sent bereavement card.
== END ==
PROVIDERS: PCP Internal Medicine; Referring Provider Internal Medicine; Visit Provider Internal Medicine
DX: D64.9 Anemia, unspecified (principal); N18.9 Chronic kidney disease, unspecified; D63.1 Anemia in chronic kidney disease; I12.9 Hypertensive chronic kidney disease with stage 1 through stage 4 chronic kidney disease, or unspecified chronic kidney disease; E11.22 Type 2 diabetes mellitus with diabetic chronic kidney disease; E78.5 Hyperlipidemia, unspecified; N40.0 Benign prostatic hyperplasia without lower urinary tract symptoms; I25.10 Atherosclerotic heart disease of native coronary artery without angina pectoris; I25.2 Old myocardial infarction; Z95.5 Presence of coronary angioplasty implant and graft; Z86.73 Personal history of transient ischemic attack (TIA), and cerebral infarction without residual deficits; Z87.891 Personal history of nicotine dependence; Z79.84 Long term (current) use of oral hypoglycemic drugs
CPT/HCPCS: 36415; 80053; 82607; 82728; 82746; 84155; 84165; 84443; 85025; 85045; 99204; 99213; 99214

== ENCOUNTER 2020-10-05 15:47 | Emergency (ER) | payer MEDICARE, OTHER, SELFPAY ==
[2020-10-05] VITALS (17 sets, daily range): BP systolic 92–144; BP diastolic 50–72; PULSE 95–111; RESP 20–33; TEMP 37.3; O2SAT 81–100
--- NOTE | 2020-10-05 16:00 | ED.MALEGU ---
HPI - Male Genitourinary <Yamileth Wang DO - Last Filed: 10/08/20 07:41> General Chief complaint: Urogenital-Male Stated complaint: Unable to Urinate, Foul Smelling Urine Time Seen by Provider: 10/05/20 15:52 Source: patient and family Mode of arrival: Wheelchair History of Present Illness HPI Narrative: Patient is an 80-year-old male who has history of Alzheimer's, CVA, diabetes, hypertension, coronary artery disease, hyperlipidemia presenting today with foul-smelling urine. states that last evening he had difficulty with urination last evening he has been chilled as well. She said finally today he had some foul-smelling urine. He is overall a poor historian he denies any chest pain he has not had a cough he has no abdominal pain nausea or vomiting. He is known to be tachycardic and a reported fever at home MD Complaint: dysuria Related Data Home Medications Medication Instructions Recorded Confirmed atorvastatin 40 mg PO HS #0 09/08/17 09/16/20 clopidogrel 75 mg PO QPM #0 09/08/17 09/16/20 donepezil 5 mg PO HS #0 09/08/17 09/16/20 aspirin 81 mg PO DAILY 05/13/20 09/16/20 ferrous sulfate 325 mg PO BID 05/13/20 09/16/20 lancets-blood glucose strips 05/13/20 09/16/20 metformin 500 mg PO BID 05/13/20 09/16/20 metoprolol tartrate 25 mg PO DAILY 05/13/20 09/16/20 multivitamin 1 tab PO DAILY 05/13/20 09/16/20 pioglitazone 30 mg PO DAILY 05/13/20 09/16/20 Previous Rx's Medication Instructions Recorded acetaminophen 650 mg PO Q8H #90 tab 09/09/17 gabapentin [Neurontin] 300 mg PO HS #30 cap 09/09/17 Allergies Allergy/AdvReac Type Severity Reaction Status Date / Time niacin AdvReac Unknown ITCHING Verified 05/13/20 10:34 Review of Systems <Yamileth Wang DO - Last Filed: 10/08/20 07:41> Constitutional Constitutional: Denies chills and Reports fever(s) Cardiovascular Cardiovascular: Denies chest pain, Denies irregular heart rhythm and Denies lightheadedness Genitourinary Genitourinary: Reports as per HPI Genitourinary: Reports as per HPI Musculoskeletal Musculoskeletal: Denies back pain Integumentary/Breasts Skin/Breast: Denies pruritus, Denies erythema, Denies rash and Denies wounds Neurologic Neurologic: Reports confusion (possibly more than normal) Psychiatric Psychiatric: Reports confusion (possibly more than normal) Patient History <Yamileth Wang DO - Last Filed: 10/08/20 07:41> Medical History (Updated 10/05/20 @ 19:45 by Paul Hamilton DO) CVA (cerebral vascular accident) Diabetes Hyperlipidemia Hypertension Exam <Yamileth Wang DO - Last Filed: 10/08/20 07:41> Initial Vital Signs Initial Vital Signs: Vital Signs Temperature 99.2 F 10/05/20 15:50 Pulse Rate 102 H 10/05/20 15:50 Respiratory Rate 22 10/05/20 15:50 Blood Pressure 141/69 H 10/05/20 15:50 Pulse Oximetry 97 10/05/20 15:50 GENERAL: Alert pleasantly confused elderly male and in no acute distress. HEENT: Head atraumatic,EOMI, pupils reactive, face symmetric, moist mucous membranes CARDIOVASCULAR: Slight ataxic retic no rubs or murmur RESPIRATORY: Breath sounds equal bilaterally, no wheezes rales or rhonchi. ABDOMEN: Soft, nontender. Normoactive bowel sounds all 4 quadrants. No guarding or rebound. : Mild left CVA tenderness EXTREMITIES: Normal range of motion, no clubbing or edema. Neurovascularly intact NEUROLOGICAL: Moving all extremities no cranial nerve deficits SKIN: Warm, dry, no laceration, no petechiae, no rashes or lesions. <Paul Hamilton DO - Last Filed: 10/05/20 22:13> Initial Vital Signs Initial Vital Signs: Vital Signs Temperature 99.2 F 10/05/20 15:50 Pulse Rate 102 H 10/05/20 15:50 Respiratory Rate 22 10/05/20 15:50 Blood Pressure 141/69 H 10/05/20 15:50 Pulse Oximetry 97 10/05/20 15:50 Course <Yamileth Wang DO - Last Filed: 10/08/20 07:41> Orders Ordered: Discontinued Medications Aspirin (Aspirin 81 Mg Chew Tab) 324 mg PO NOW ONE Stop: 10/05/20 17:23 Last Admin: 10/05/20 17:37 Dose: 324 mg Documented by: AKBAR Heparin Sodium (Porcine) (Heparin 5,000 Unit/Ml Vial) 4,000 unit IV NOW ONE Stop: 10/05/20 17:23 Last Admin: 10/05/20 17:37 Dose: 4,000 unit Documented by: AKBAR Sodium Chloride (Normal Saline 0.9%) 1,000 mls @ 100 mls/hr IV CONT CARLOS Last Admin: 10/05/20 18:55 Dose: 100 mls/hr Documented by: Infusion: 10/05/20 18:10 Dose: 0 mls/hr Documented by: Infusion: 10/05/20 17:00 Dose: 999 mls/hr Documented by: Admin: 10/05/20 16:45 Dose: 200 mls/hr Documented by: NADEEM Ceftriaxone Sodium/Dextrose (Rocephin) 1 gm in 50 mls @ 100 mls/hr IV NOW ONE Stop: 10/05/20 17:48 Last Infusion: 10/05/20 18:35 Dose: 0 mls/hr Documented by: Admin: 10/05/20 17:45 Dose: 100 mls/hr Documented by: AKBAR Heparin Sodium/Dextrose (Heparin Drip) 25,000 unit in 500 mls @ 18.507 mls/hr IV CONT ACRLOS; Protocol Last Admin: 10/05/20 17:40 Dose: 12 units/kg/hr, 18.507 mls/hr Documented by: AKBAR Vital Signs Vital signs: Vital Signs - 8 hr 10/05/20 15:50 10/05/20 15:57 10/05/20 15:58 Temperature 99.2 F Pulse Rate 102 H 108 H 109 H Respiratory Rate 22 Blood Pressure 141/69 H 143/72 H Pulse Oximetry 97 99 98 10/05/20 16:00 10/05/20 16:30 10/05/20 16:46 Temperature Pulse Rate 105 H 111 H 110 H Respiratory Rate 32 H 25 H Blood Pressure 144/65 H 133/70 Pulse Oximetry 98 81 L 98 10/05/20 17:00 10/05/20 17:30 10/05/20 18:00 Temperature Pulse Rate 110 H 108 H 108 H Respiratory Rate 23 33 H 27 H Blood Pressure 127/65 131/67 127/68 Pulse Oximetry 98 100 97 10/05/20 18:30 10/05/20 19:00 10/05/20 19:30 Temperature Pulse Rate 105 H 101 H 95 H Respiratory Rate 27 H 25 H 20 Blood Pressure 114/56 L 109/58 L 92/50 L Pulse Oximetry 95 97 97 10/05/20 20:00 10/05/20 20:30 10/05/20 21:00 Temperature Pulse Rate 96 H 97 H 97 H Respiratory Rate 20 27 H Blood Pressure 92/58 L 104/59 L 105/56 L Pulse Oximetry 98 98 97 <Paul Hamilton, DO - Last Filed: 10/05/20 22:13> Orders Ordered: Discontinued Medications Aspirin (Aspirin 81 Mg Chew Tab) 324 mg PO NOW ONE Stop: 10/05/20 17:23 Last Admin: 10/05/20 17:37 Dose: 324 mg Documented by: AKBAR Heparin Sodium (Porcine) (Heparin 5,000 Unit/Ml Vial) 4,000 unit IV NOW ONE Stop: 10/05/20 17:23 Last Admin: 10/05/20 17:37 Dose: 4,000 unit Documented by: AKBAR Sodium Chloride (Normal Saline 0.9%) 1,000 mls @ 100 mls/hr IV CONT CARLOS Last Admin: 10/05/20 18:55 Dose: 100 mls/hr Documented by: Infusion: 10/05/20 18:10 Dose: 0 mls/hr Documented by: Infusion: 10/05/20 17:00 Dose: 999 mls/hr Documented by: Admin: 10/05/20 16:45 Dose: 200 mls/hr Documented by: NADEEM Ceftriaxone Sodium/Dextrose (Rocephin) 1 gm in 50 mls @ 100 mls/hr IV NOW ONE Stop: 10/05/20 17:48 Last Infusion: 10/05/20 18:35 Dose: 0 mls/hr Documented by: Admin: 10/05/20 17:45 Dose: 100 mls/hr Documented by: AKBAR Heparin Sodium/Dextrose (Heparin Drip) 25,000 unit in 500 mls @ 18.507 mls/hr IV CONT CARLOS; Protocol Last Admin: 10/05/20 17:40 Dose: 12 units/kg/hr, 18.507 mls/hr Documented by: MMINOR Vital Signs Vital signs: Vital Signs - 8 hr 10/05/20 15:50 10/05/20 15:57 10/05/20 15:58 Temperature 99.2 F Pulse Rate 102 H 108 H 109 H Respiratory Rate 22 Blood Pressure 141/69 H 143/72 H Pulse Oximetry 97 99 98 10/05/20 16:00 10/05/20 16:30 10/05/20 16:46 Temperature Pulse Rate 105 H 111 H 110 H Respiratory Rate 32 H 25 H Blood Pressure 144/65 H 133/70 Pulse Oximetry 98 81 L 98 10/05/20 17:00 10/05/20 17:30 10/05/20 18:00 Temperature Pulse Rate 110 H 108 H 108 H Respiratory Rate 23 33 H 27 H Blood Pressure 127/65 131/67 127/68 Pulse Oximetry 98 100 97 10/05/20 18:30 10/05/20 19:00 10/05/20 19:30 Temperature Pulse Rate 105 H 101 H 95 H Respiratory Rate 27 H 25 H 20 Blood Pressure 114/56 L 109/58 L 92/50 L Pulse Oximetry 95 97 97 10/05/20 20:00 10/05/20 20:30 10/05/20 21:00 Temperature Pulse Rate 96 H 97 H 97 H Respiratory Rate 20 27 H Blood Pressure 92/58 L 104/59 L 105/56 L Pulse Oximetry 98 98 97 MDM - Male Genitourinary <Yamileth Wang DO - Last Filed: 10/08/20 07:41> Lab Data Attestation: I reviewed the patient's lab results. Result diagrams: 10/05/20 16:35 10/05/20 16:35 Labs: Lab Results 10/05/20 10/05/20 10/05/20 Range/Units 16:35 16:35 16:35 WBC 8.2 (4.5-11.0) X10^3/uL RBC 3.21 L (4.5-5.9) X10^6/uL Hgb 10.4 L (13.5-17.5) g/dL Hct 31.7 L (41-53) % MCV 98.8 (80-100) fL MCH 32.5 (26-34) PG MCHC 32.9 (30-36) % RDW 14.6 (11.6-14.8) % Plt Count 214 (150-400) X10^3/uL Neut % (Auto) 84.7 H (50-75) % Lymph % (Auto) 10.8 L (25-40) % [place] % (Auto) 4.2 (3-14) % Eos % (Auto) 0.1 L (2-4) % Baso % (Auto) 0.2 (0-2) % Neut # (Auto) 6900 (2551-3119) /uL Lymph # (Auto) 900 L (7521-1898) /uL [place] # (Auto) 300 (0-900) /uL Eos # (Auto) 0 (0-450) /uL Baso # (Auto) 0 (0-100) /uL PT (10.1-12.7) SECONDS INR (0.9-1.3) APTT (26.4-36.2) SECONDS Sodium 138 (137-145) mmol/L Potassium 4.8 (3.4-5.1) mmol/L Chloride 102 (98-107) mmol/L Carbon Dioxide 27 (22-32) mmol/L BUN 26 H (9-20) mg/dL Creatinine 1.42 H (0.66-1.25) mg/dL Estimated GFR 47.8 L (>60) mL/min BUN/Creatinine Ratio 18.3 (6-22) Glucose 192 H (80-110) mg/dL Lactate (0.7-2.1) mmol/L Calcium 10.8 H (8.4-10.2) mg/dL Total Bilirubin 0.9 (0.2-1.3) mg/dL AST 35 (17-59) IU/L ALT 22 (<50) IU/L Alkaline Phosphatase 91 (38-126) U/L Total Creatine Kinase 103 (55-170) U/L CK-MB (CK-2) 5.25 H (<2.37) ng/mL CK-MB (CK-2) Rel Index 5.1 H (1.5-5.0) % Troponin I 1.000 H* (0.01-0.034) ng/mL NT-Pro-B Natriuret Pep (<450) pg/mL Total Protein 8.8 H (6.3-8.2) g/dL Albumin 4.9 (3.5-5.0) g/dL Globulin 3.9 (1.7-4.1) g/dL Albumin/Globulin Ratio 1.3 (1.0-2.8) Procalcitonin 0.20 (<0.5) ng/mL Urine Color Urine Appearance Urine pH (4.5-8.0) Ur Specific Gerton (1.000-1.035) Urine Protein (Negative) Urine Glucose (UA) (Negative) g/dL Urine Ketones (NEGATIVE) Urine Occult Blood (Negative) Urine Nitrate (Negative) Urine Bilirubin (NEGATIVE) Urine Urobilinogen (0.2) E.U./dL Ur Leukocyte Esterase (NEGATIVE) Urine RBC (0-5/HPF) Urine WBC (0-5/HPF) Amorphous Sediment Urine Bacteria (None) Ur Culture Indicated? COVID-19 PCR (Negative) 10/05/20 10/05/20 10/05/20 Range/Units 16:35 16:35 16:35 WBC (4.5-11.0) X10^3/uL RBC (4.5-5.9) X10^6/uL Hgb (13.5-17.5) g/dL Hct (41-53) % MCV (80-100) fL MCH (26-34) PG MCHC (30-36) % RDW (11.6-14.8) % Plt Count (150-400) X10^3/uL Neut % (Auto) (50-75) % Lymph % (Auto) (25-40) % Bosque % (Auto) (3-14) % Eos % (Auto) (2-4) % Baso % (Auto) (0-2) % Neut # (Auto) (4896-3835) /uL Lymph # (Auto) (2309-2194) /uL Bos[place] # (Auto) (0-900) /uL Eos # (Auto) (0-450) /uL Baso # (Auto) (0-100) /uL PT 12.8 H (10.1-12.7) SECONDS INR 1.1 (0.9-1.3) APTT 39 H (26.4-36.2) SECONDS Sodium (137-145) mmol/L Potassium (3.4-5.1) mmol/L Chloride (98-107) mmol/L Carbon Dioxide (22-32) mmol/L BUN (9-20) mg/dL Creatinine (0.66-1.25) mg/dL Estimated GFR (>60) mL/min BUN/Creatinine Ratio (6-22) Glucose (80-110) mg/dL Lactate 3.3 H (0.7-2.1) mmol/L Calcium (8.4-10.2) mg/dL Total Bilirubin (0.2-1.3) mg/dL AST (17-59) IU/L ALT (<50) IU/L Alkaline Phosphatase (38-126) U/L Total Creatine Kinase (55-170) U/L CK-MB (CK-2) (<2.37) ng/mL CK-MB (CK-2) Rel Index (1.5-5.0) % Troponin I (0.01-0.034) ng/mL NT-Pro-B Natriuret Pep (<450) pg/mL Total Protein (6.3-8.2) g/dL Albumin (3.5-5.0) g/dL Globulin (1.7-4.1) g/dL Albumin/Globulin Ratio (1.0-2.8) Procalcitonin (<0.5) ng/mL Urine Color Urine Appearance Urine pH (4.5-8.0) Ur Specific Gerton (1.000-1.035) Urine Protein (Negative) Urine Glucose (UA) (Negative) g/dL Urine Ketones (NEGATIVE) Urine Occult Blood (Negative) Urine Nitrate (Negative) Urine Bilirubin (NEGATIVE) Urine Urobilinogen (0.2) E.U./dL Ur Leukocyte Esterase (NEGATIVE) Urine RBC (0-5/HPF) Urine WBC (0-5/HPF) Amorphous Sediment Urine Bacteria (None) Ur Culture Indicated? COVID-19 PCR (Negative) 10/05/20 10/05/20 10/05/20 Range/Units 16:35 17:30 18:01 WBC (4.5-11.0) X10^3/uL RBC (4.5-5.9) X10^6/uL Hgb (13.5-17.5) g/dL Hct (41-53) % MCV (80-100) fL MCH (26-34) PG MCHC (30-36) % RDW (11.6-14.8) % Plt Count (150-400) X10^3/uL Neut % (Auto) (50-75) % Lymph % (Auto) (25-40) % Bosque % (Auto) (3-14) % Eos % (Auto) (2-4) % Baso % (Auto) (0-2) % Neut # (Auto) (4572-0807) /uL Lymph # (Auto) (5548-3296) /uL Bos[place] # (Auto) (0-900) /uL Eos # (Auto) (0-450) /uL Baso # (Auto) (0-100) /uL PT (10.1-12.7) SECONDS INR (0.9-1.3) APTT (26.4-36.2) SECONDS Sodium (137-145) mmol/L Potassium (3.4-5.1) mmol/L Chloride (98-107) mmol/L Carbon Dioxide (22-32) mmol/L BUN (9-20) mg/dL Creatinine (0.66-1.25) mg/dL Estimated GFR (>60) mL/min BUN/Creatinine Ratio (6-22) Glucose (80-110) mg/dL Lactate (0.7-2.1) mmol/L Calcium (8.4-10.2) mg/dL Total Bilirubin (0.2-1.3) mg/dL AST (17-59) IU/L ALT (<50) IU/L Alkaline Phosphatase (38-126) U/L Total Creatine Kinase (55-170) U/L CK-MB (CK-2) (<2.37) ng/mL CK-MB (CK-2) Rel Index (1.5-5.0) % Troponin I (0.01-0.034) ng/mL NT-Pro-B Natriuret Pep 32334 H (<450) pg/mL Total Protein (6.3-8.2) g/dL Albumin (3.5-5.0) g/dL Globulin (1.7-4.1) g/dL Albumin/Globulin Ratio (1.0-2.8) Procalcitonin (<0.5) ng/mL Urine Color Yellow Urine Appearance Cloudy Urine pH 5.5 (4.5-8.0) Ur Specific Gerton 1.020 (1.000-1.035) Urine Protein 2+ H (Negative) Urine Glucose (UA) Negative (Negative) g/dL Urine Ketones Negative (NEGATIVE) Urine Occult Blood 3+ H (Negative) Urine Nitrate Positive (Negative) Urine Bilirubin Negative (NEGATIVE) Urine Urobilinogen 0.2 (0.2) E.U./dL Ur Leukocyte Esterase 3+ H (NEGATIVE) Urine RBC 10-30/hpf H (0-5/HPF) Urine WBC 30-100/hpf H (0-5/HPF) Amorphous Sediment 1+ Urine Bacteria Many (>30) H (None) Ur Culture Indicated? Specimen cultured COVID-19 PCR Negative (Negative) 10/05/20 10/05/20 Range/Units 19:07 21:42 WBC (4.5-11.0) X10^3/uL RBC (4.5-5.9) X10^6/uL Hgb (13.5-17.5) g/dL Hct (41-53) % MCV (80-100) fL MCH (26-34) PG MCHC (30-36) % RDW (11.6-14.8) % Plt Count (150-400) X10^3/uL Neut % (Auto) (50-75) % Lymph % (Auto) (25-40) % Bos[place] % (Auto) (3-14) % Eos % (Auto) (2-4) % Baso % (Auto) (0-2) % Neut # (Auto) (2105-2271) /uL Lymph # (Auto) (8023-9414) /uL [place] # (Auto) (0-900) /uL Eos # (Auto) (0-450) /uL Baso # (Auto) (0-100) /uL PT (10.1-12.7) SECONDS INR (0.9-1.3) APTT (26.4-36.2) SECONDS Sodium (137-145) mmol/L Potassium (3.4-5.1) mmol/L Chloride (98-107) mmol/L Carbon Dioxide (22-32) mmol/L BUN (9-20) mg/dL Creatinine (0.66-1.25) mg/dL Estimated GFR (>60) mL/min BUN/Creatinine Ratio (6-22) Glucose (80-110) mg/dL Lactate 3.0 H (0.7-2.1) mmol/L Calcium (8.4-10.2) mg/dL Total Bilirubin (0.2-1.3) mg/dL AST (17-59) IU/L ALT (<50) IU/L Alkaline Phosphatase (38-126) U/L Total Creatine Kinase (55-170) U/L CK-MB (CK-2) (<2.37) ng/mL CK-MB (CK-2) Rel Index (1.5-5.0) % Troponin I 1.060 H* (0.01-0.034) ng/mL NT-Pro-B Natriuret Pep (<450) pg/mL Total Protein (6.3-8.2) g/dL Albumin (3.5-5.0) g/dL Globulin (1.7-4.1) g/dL Albumin/Globulin Ratio (1.0-2.8) Procalcitonin (<0.5) ng/mL Urine Color Urine Appearance Urine pH (4.5-8.0) Ur Specific Gerton (1.000-1.035) Urine Protein (Negative) Urine Glucose (UA) (Negative) g/dL Urine Ketones (NEGATIVE) Urine Occult Blood (Negative) Urine Nitrate (Negative) Urine Bilirubin (NEGATIVE) Urine Urobilinogen (0.2) E.U./dL Ur Leukocyte Esterase (NEGATIVE) Urine RBC (0-5/HPF) Urine WBC (0-5/HPF) Amorphous Sediment Urine Bacteria (None) Ur Culture Indicated? COVID-19 PCR (Negative) Imaging Data Chest x-ray: Radiologist's Impression: PROCEDURE: XR CHEST 1V INDICATIONS: fever TECHNIQUE: One view of the chest was acquired. COMPARISON: [facility], CHEST 1 VIEW, 09/08/2017, 5:33. FINDINGS: Surgical changes and devices: None. Lungs and pleura: Mild right greater than left bilateral perihilar opacity. No pleural effusions or pneumothorax. Mediastinum: Mediastinal contours appear normal. Heart size is normal. Bones and chest wall: No suspicious bony lesions. Overlying soft tissues appear unremarkable. IMPRESSION: Mild atypical pneumonia Dictated by: Derek Fuentes M.D. on 10/05/2020 at 16:32 ECG Data Attestation: I personally reviewed and interpreted this ECG as follows: Prior ECG tracings: available for review Interpretation: EKG 1. Is significant artifact noted rate [address] depression noted in V3 but no ST elevation appreciated EKG 2. Sinus rhythm right bundle-branch block noted significant ST depression V2 through V6 no ST elevations MDM Narrative Medical decision making narrative: Patient has elevated lactate foul-smelling urine presumed to be septic he is afebrile with mild tachycardia no significant leukocytosis he also has not elevated procalcitonin. There is suspected infection. Still awaiting urine. He is started empirically on Rocephin chest x-ray does show pneumonia however he has no cough chest pain or shortness of breath. Urine is positive for nitrites Troponin came back as elevated and critical at value of 1.0 Is discussed with and patient 0 she was got at this time they are agreeable and would like cardiac stent if needed. 180 , cardiology made aware of ST depression and positive troponin and known coronary artery disease. EKGs are sent to him. Agrees with transfer. signed out to Dr. Hamilton. awaiting hospitalist Patient is a FULL CODE. <Paul Hamilton, DO - Last Filed: 10/05/20 22:13> Lab Data Labs: Lab Results 10/05/20 10/05/20 10/05/20 Range/Units 16:35 16:35 16:35 WBC 8.2 (4.5-11.0) X10^3/uL RBC 3.21 L (4.5-5.9) X10^6/uL Hgb 10.4 L (13.5-17.5) g/dL Hct 31.7 L (41-53) % MCV 98.8 (80-100) fL MCH 32.5 (26-34) PG MCHC 32.9 (30-36) % RDW 14.6 (11.6-14.8) % Plt Count 214 (150-400) X10^3/uL Neut % (Auto) 84.7 H (50-75) % Lymph % (Auto) 10.8 L (25-40) % Bosque % (Auto) 4.2 (3-14) % Eos % (Auto) 0.1 L (2-4) % Baso % (Auto) 0.2 (0-2) % Neut # (Auto) 6900 (5371-8819) /uL Lymph # (Auto) 900 L (7012-6817) /uL Bosque # (Auto) 300 (0-900) /uL Eos # (Auto) 0 (0-450) /uL Baso # (Auto) 0 (0-100) /uL PT (10.1-12.7) SECONDS INR (0.9-1.3) APTT (26.4-36.2) SECONDS Sodium 138 (137-145) mmol/L Potassium 4.8 (3.4-5.1) mmol/L Chloride 102 (98-107) mmol/L Carbon Dioxide 27 (22-32) mmol/L BUN 26 H (9-20) mg/dL Creatinine 1.42 H (0.66-1.25) mg/dL Estimated GFR 47.8 L (>60) mL/min BUN/Creatinine Ratio 18.3 (6-22) Glucose 192 H (80-110) mg/dL Lactate (0.7-2.1) mmol/L Calcium 10.8 H (8.4-10.2) mg/dL Total Bilirubin 0.9 (0.2-1.3) mg/dL AST 35 (17-59) IU/L ALT 22 (<50) IU/L Alkaline Phosphatase 91 (38-126) U/L Total Creatine Kinase 103 (55-170) U/L CK-MB (CK-2) 5.25 H (<2.37) ng/mL CK-MB (CK-2) Rel Index 5.1 H (1.5-5.0) % Troponin I 1.000 H* (0.01-0.034) ng/mL NT-Pro-B Natriuret Pep (<450) pg/mL Total Protein 8.8 H (6.3-8.2) g/dL Albumin 4.9 (3.5-5.0) g/dL Globulin 3.9 (1.7-4.1) g/dL Albumin/Globulin Ratio 1.3 (1.0-2.8) Procalcitonin 0.20 (<0.5) ng/mL Urine Color Urine Appearance Urine pH (4.5-8.0) Ur Specific Gerton (1.000-1.035) Urine Protein (Negative) Urine Glucose (UA) (Negative) g/dL Urine Ketones (NEGATIVE) Urine Occult Blood (Negative) Urine Nitrate (Negative) Urine Bilirubin (NEGATIVE) Urine Urobilinogen (0.2) E.U./dL Ur Leukocyte Esterase (NEGATIVE) Urine RBC (0-5/HPF) Urine WBC (0-5/HPF) Amorphous Sediment Urine Bacteria (None) Ur Culture Indicated? COVID-19 PCR (Negative) 10/05/20 10/05/20 10/05/20 Range/Units 16:35 16:35 16:35 WBC (4.5-11.0) X10^3/uL RBC (4.5-5.9) X10^6/uL Hgb (13.5-17.5) g/dL Hct (41-53) % MCV (80-100) fL MCH (26-34) PG MCHC (30-36) % RDW (11.6-14.8) % Plt Count (150-400) X10^3/uL Neut % (Auto) (50-75) % Lymph % (Auto) (25-40) % Bos[place] % (Auto) (3-14) % Eos % (Auto) (2-4) % Baso % (Auto) (0-2) % Neut # (Auto) (6950-1077) /uL Lymph # (Auto) (7858-6978) /uL [place] # (Auto) (0-900) /uL Eos # (Auto) (0-450) /uL Baso # (Auto) (0-100) /uL PT 12.8 H (10.1-12.7) SECONDS INR 1.1 (0.9-1.3) APTT 39 H (26.4-36.2) SECONDS Sodium (137-145) mmol/L Potassium (3.4-5.1) mmol/L Chloride (98-107) mmol/L Carbon Dioxide (22-32) mmol/L BUN (9-20) mg/dL Creatinine (0.66-1.25) mg/dL Estimated GFR (>60) mL/min BUN/Creatinine Ratio (6-22) Glucose (80-110) mg/dL Lactate 3.3 H (0.7-2.1) mmol/L Calcium (8.4-10.2) mg/dL Total Bilirubin (0.2-1.3) mg/dL AST (17-59) IU/L ALT (<50) IU/L Alkaline Phosphatase (38-126) U/L Total Creatine Kinase (55-170) U/L CK-MB (CK-2) (<2.37) ng/mL CK-MB (CK-2) Rel Index (1.5-5.0) % Troponin I (0.01-0.034) ng/mL NT-Pro-B Natriuret Pep (<450) pg/mL Total Protein (6.3-8.2) g/dL Albumin (3.5-5.0) g/dL Globulin (1.7-4.1) g/dL Albumin/Globulin Ratio (1.0-2.8) Procalcitonin (<0.5) ng/mL Urine Color Urine Appearance Urine pH (4.5-8.0) Ur Specific Gerton (1.000-1.035) Urine Protein (Negative) Urine Glucose (UA) (Negative) g/dL Urine Ketones (NEGATIVE) Urine Occult Blood (Negative) Urine Nitrate (Negative) Urine Bilirubin (NEGATIVE) Urine Urobilinogen (0.2) E.U./dL Ur Leukocyte Esterase (NEGATIVE) Urine RBC (0-5/HPF) Urine WBC (0-5/HPF) Amorphous Sediment Urine Bacteria (None) Ur Culture Indicated? COVID-19 PCR (Negative) 10/05/20 10/05/20 10/05/20 Range/Units 16:35 17:30 18:01 WBC (4.5-11.0) X10^3/uL RBC (4.5-5.9) X10^6/uL Hgb (13.5-17.5) g/dL Hct (41-53) % MCV (80-100) fL MCH (26-34) PG MCHC (30-36) % RDW (11.6-14.8) % Plt Count (150-400) X10^3/uL Neut % (Auto) (50-75) % Lymph % (Auto) (25-40) % Bosque % (Auto) (3-14) % Eos % (Auto) (2-4) % Baso % (Auto) (0-2) % Neut # (Auto) (2466-0764) /uL Lymph # (Auto) (9358-8334) /uL Bosque # (Auto) (0-900) /uL Eos # (Auto) (0-450) /uL Baso # (Auto) (0-100) /uL PT (10.1-12.7) SECONDS INR (0.9-1.3) APTT (26.4-36.2) SECONDS Sodium (137-145) mmol/L Potassium (3.4-5.1) mmol/L Chloride (98-107) mmol/L Carbon Dioxide (22-32) mmol/L BUN (9-20) mg/dL Creatinine (0.66-1.25) mg/dL Estimated GFR (>60) mL/min BUN/Creatinine Ratio (6-22) Glucose (80-110) mg/dL Lactate (0.7-2.1) mmol/L Calcium (8.4-10.2) mg/dL Total Bilirubin (0.2-1.3) mg/dL AST (17-59) IU/L ALT (<50) IU/L Alkaline Phosphatase (38-126) U/L Total Creatine Kinase (55-170) U/L CK-MB (CK-2) (<2.37) ng/mL CK-MB (CK-2) Rel Index (1.5-5.0) % Troponin I (0.01-0.034) ng/mL NT-Pro-B Natriuret Pep 01808 H (<450) pg/mL Total Protein (6.3-8.2) g/dL Albumin (3.5-5.0) g/dL Globulin (1.7-4.1) g/dL Albumin/Globulin Ratio (1.0-2.8) Procalcitonin (<0.5) ng/mL Urine Color Yellow Urine Appearance Cloudy Urine pH 5.5 (4.5-8.0) Ur Specific Gerton 1.020 (1.000-1.035) Urine Protein 2+ H (Negative) Urine Glucose (UA) Negative (Negative) g/dL Urine Ketones Negative (NEGATIVE) Urine Occult Blood 3+ H (Negative) Urine Nitrate Positive (Negative) Urine Bilirubin Negative (NEGATIVE) Urine Urobilinogen 0.2 (0.2) E.U./dL Ur Leukocyte Esterase 3+ H (NEGATIVE) Urine RBC 10-30/hpf H (0-5/HPF) Urine WBC 30-100/hpf H (0-5/HPF) Amorphous Sediment 1+ Urine Bacteria Many (>30) H (None) Ur Culture Indicated? Specimen cultured COVID-19 PCR Negative (Negative) 10/05/20 10/05/20 Range/Units 19:07 21:42 WBC (4.5-11.0) X10^3/uL RBC (4.5-5.9) X10^6/uL Hgb (13.5-17.5) g/dL Hct (41-53) % MCV (80-100) fL MCH (26-34) PG MCHC (30-36) % RDW (11.6-14.8) % Plt Count (150-400) X10^3/uL Neut % (Auto) (50-75) % Lymph % (Auto) (25-40) % Bosque % (Auto) (3-14) % Eos % (Auto) (2-4) % Baso % (Auto) (0-2) % Neut # (Auto) (1391-7978) /uL Lymph # (Auto) (7781-4472) /uL Bosque # (Auto) (0-900) /uL Eos # (Auto) (0-450) /uL Baso # (Auto) (0-100) /uL PT (10.1-12.7) SECONDS INR (0.9-1.3) APTT (26.4-36.2) SECONDS Sodium (137-145) mmol/L Potassium (3.4-5.1) mmol/L Chloride (98-107) mmol/L Carbon Dioxide (22-32) mmol/L BUN (9-20) mg/dL Creatinine (0.66-1.25) mg/dL Estimated GFR (>60) mL/min BUN/Creatinine Ratio (6-22) Glucose (80-110) mg/dL Lactate 3.0 H (0.7-2.1) mmol/L Calcium (8.4-10.2) mg/dL Total Bilirubin (0.2-1.3) mg/dL AST (17-59) IU/L ALT (<50) IU/L Alkaline Phosphatase (38-126) U/L Total Creatine Kinase (55-170) U/L CK-MB (CK-2) (<2.37) ng/mL CK-MB (CK-2) Rel Index (1.5-5.0) % Troponin I 1.060 H* (0.01-0.034) ng/mL NT-Pro-B Natriuret Pep (<450) pg/mL Total Protein (6.3-8.2) g/dL Albumin (3.5-5.0) g/dL Globulin (1.7-4.1) g/dL Albumin/Globulin Ratio (1.0-2.8) Procalcitonin (<0.5) ng/mL Urine Color Urine Appearance Urine pH (4.5-8.0) Ur Specific Gerton (1.000-1.035) Urine Protein (Negative) Urine Glucose (UA) (Negative) g/dL Urine Ketones (NEGATIVE) Urine Occult Blood (Negative) Urine Nitrate (Negative) Urine Bilirubin (NEGATIVE) Urine Urobilinogen (0.2) E.U./dL Ur Leukocyte Esterase (NEGATIVE) Urine RBC (0-5/HPF) Urine WBC (0-5/HPF) Amorphous Sediment Urine Bacteria (None) Ur Culture Indicated? COVID-19 PCR (Negative) MDM Narrative Medical decision making narrative: Dr hamilton: Received turned over from Dr. Wang. I discussed the case with the hospitalist at [facility]. Dr. Wang has already discussed the case with Cardiology. Patient has received antibiotics secondary to his urinary tract infection. He does have an elevated troponin and EKG changes that are concerning for ischemia. He has been on heparin. He is a full code. Patient is stable for transfer. We will transport to [facility] for further evaluation and treatment. Discharge Plan Departure Patient Disposition: [facility] Clinical Impression: Urinary tract infection, ACS (acute coronary syndrome) Prescriptions: No Action clopidogrel 75 MG tablet 75 mg PO QPM Qty: 0 RF: 0 atorvastatin 40 MG tablet 40 mg PO HS Qty: 0 RF: 0 donepezil 5 MG tablet 5 mg PO HS Qty: 0 RF: 0 gabapentin [Neurontin] 300 MG capsule 300 mg PO HS Qty: 30 RF: 0 acetaminophen 650 MG tablet extended release 650 mg PO Q8H Qty: 90 RF: 0 multivitamin Tablet 1 tab PO DAILY RF: 0 ferrous sulfate 325 mg (65 mg iron) Tablet 325 mg PO BID RF: 0 metformin 1,000 mg Tablet 500 mg PO BID RF: 0 aspirin 81 mg Tablet,Chewable 81 mg PO DAILY RF: 0 pioglitazone 30 mg Tablet 30 mg PO DAILY RF: 0 metoprolol tartrate 25 mg Tablet 25 mg PO DAILY RF: 0 (DME) lancets-blood glucose strips 30 gauge Combo Pack MISCELLANEOUS RF: 0 Referrals: Hung Rosario MD [Primary Care Provider] -
[2020-10-05] MEDS: SODIUM CHLORIDE 0.9% 1,000 ML 200 ML IV (16:45)
[2020-10-05 16:52] LABS: Add Manual Diff / Slide Review NO; Basophils Absolute Auto 0 /uL (0-100); Basophils Percent Auto 0.2 % (0-2); Eosinophils Absolute Auto 0 /uL (0-450); Eosinophils Percent Auto 0.1 % (2-4); Hematocrit 31.7 % (41-53); Hemoglobin 10.4 g/dL (13.5-17.5); Lymphocytes Absolute Auto 900 /uL (1100-4500); Lymphocytes Percent Auto 10.8 % (25-40); Mean Corpuscular HGB Conc 32.9 % (30-36); Mean Corpuscular Hemoglobin 32.5 PG (26-34); Mean Corpuscular Volume 98.8 fL (80-100); Monocytes Absolute Auto 300 /uL (0-900); Monocytes Percent Auto 4.2 % (3-14); Neutrophils Absolute Auto 6900 /uL (1500-7000); Neutrophils Percent Auto 84.7 % (50-75); Platelet Count 214 X10^3/uL (150-400); Red Blood Cell Count 3.21 X10^6/uL (4.5-5.9); Red Cell Distribution Width 14.6 % (11.6-14.8); White Blood Cell Count 8.2 X10^3/uL (4.5-11.0)
[2020-10-05 17:01] LABS: Lactate (Lactic Acid) 3.3 mmol/L (0.7-2.1)
[2020-10-05 17:02] LABS: Alanine Aminotransferase 22 IU/L (<50); Albumin 4.9 g/dL (3.5-5.0); Albumin Globulin Ratio 1.3 (1.0-2.8); Alkaline Phosphatase 91 U/L (38-126); Aspartate Aminotransferase 35 IU/L (17-59); BUN Creatinine Ratio 18.3 (6-22); Bilirubin Total 0.9 mg/dL (0.2-1.3); Blood Urea Nitrogen 26 mg/dL (9-20); Calcium 10.8 mg/dL (8.4-10.2); Carbon Dioxide 27 mmol/L (22-32); Chloride 102 mmol/L (98-107); Creatine Kinase 103 U/L (55-170); Estimated Glomerular Filt Rate 47.8 mL/min (>60); Globulin 3.9 g/dL (1.7-4.1); Glucose 192 mg/dL (80-110); HEMOLYSIS < 15 (0-50); Potassium 4.8 mmol/L (3.4-5.1); Sodium 138 mmol/L (137-145); Total Protein 8.8 g/dL (6.3-8.2)
[2020-10-05 17:17] LABS: CKMB % Relative Index 5.1 % (1.5-5.0); Creatine Kinase MB 5.25 ng/mL (<2.37)
--- NOTE | 2020-10-05 17:19 | DI.RAD.S_ITS ---
PROCEDURE: XR CHEST 1V INDICATIONS: fever TECHNIQUE: One view of the chest was acquired. COMPARISON: [facility], , CHEST 1 VIEW, 09/08/2017, 5:33. FINDINGS: Surgical changes and devices: None. Lungs and pleura: Mild right greater than left bilateral perihilar opacity. No pleural effusions or pneumothorax. Mediastinum: Mediastinal contours appear normal. Heart size is normal. Bones and chest wall: No suspicious bony lesions. Overlying soft tissues appear unremarkable. IMPRESSION: Mild atypical pneumonia Dictated by: Derek Fuentes M.D. on 10/05/2020 at 16:32 Approved by: Derek Fuentes M.D. on 10/05/2020 at 16:33
[2020-10-05 17:35] LABS: PTT Partial Thromboplastin Tim 39 SECONDS (26.4-36.2)
[2020-10-05] MEDS: ASPIRIN 81 MG CHEW TAB 324 MG PO (17:37)
[2020-10-05] MEDS: HEPARIN 5,000 UNIT/ML VIAL 4000 UNIT IV (17:37)
[2020-10-05] MEDS: HEPARIN DRIP 25,000 UNIT/500 ML IV.SOLN 18.507 UNIT IV (17:40)
[2020-10-05] MEDS: CEFTRIAXONE 1 GM/50 ML FROZ.PIGGY IV (17:45)
[2020-10-05 17:47] LABS: COVID19 -Nasal RAPID Negative (Negative)
[2020-10-05 17:59] LABS: INR 1.1 (0.9-1.3); Prothrombin Time 12.8 SECONDS (10.1-12.7)
[2020-10-05 18:04] LABS: Bilirubin Urine UA NEGATIVE (NEGATIVE); Color Urine UA YELLOW; Glucose Urine UA NEGATIVE (Negative); Ketones Urine UA NEGATIVE (NEGATIVE); Leukocyte Esterase Urine UA 3+ (NEGATIVE); Nitrite Urine UA POSITIVE (Negative); Occult Blood Urine UA 3+ (Negative); Protein Urine UA 2+ (Negative); Urobilinogen Urine UA 0.2 E.U./dL (0.2); pH Urine UA 5.5 (4.5-8.0)
[2020-10-05 18:13] LABS: NT-proBNP (BNP-Adult 18+) 10500 pg/mL (<450)
[2020-10-05 18:19] LABS: Amorphous Sediment Urine 1+; Appearance Urine UA CLOUDY; Bacteria Urine Many (>30); Culture Indicated Urine Specimen Cultured; RBC Urine 10-30/HPF (0-5/HPF); WBC Urine 30-100/HPF (0-5/HPF)
[2020-10-05 18:46] LABS: Reflexed Lactate in 2 Hours Y
[2020-10-05] MEDS: SODIUM CHLORIDE 0.9% 1,000 ML 100 ML IV (18:55)
== END 2020-10-05 22:30 | disposition short-term general hospital (02) ==
PROVIDERS: Emergency Medicine; Emergency Provider Emergency Medicine; PCP Internal Medicine
DX: N39.0 Urinary tract infection, site not specified (principal); I24.9 Acute ischemic heart disease, unspecified; R00.0 Tachycardia, unspecified; R50.9 Fever, unspecified; E11.9 Type 2 diabetes mellitus without complications; I10 Essential (primary) hypertension; I25.10 Atherosclerotic heart disease of native coronary artery without angina pectoris; E78.5 Hyperlipidemia, unspecified; R42 Dizziness and giddiness
CPT/HCPCS: 36415; 71045; 80053; 81001; 82550; 82553; 83605; 83880; 84145; 84484; 85025; 85610; 85730; 87040; 87077; 87086; 87186; 87635; 93005; 96361; 96365; 96366; 96368; 96375; 99283; 99285; J1644